=== PATIENT | female | born 1950 | race Caucasian/White ===

== ENCOUNTER 2023-10-24 04:39 | Emergency (ER) | payer MEDICARE, SELFPAY ==
[2023-10-24 04:42] VITALS: BP 182/79; PULSE 65; TEMP 36.8; O2SAT 93; BMI 41.3
--- NOTE | 2023-10-24 05:30 | W.ED.EYEPROB ---
HPI - Eye Problem General: Chief complaint: Eye Problems Stated complaint: left eye pain Time Seen by Provider: 10/24/23 05:04 History of Present Illness: 73-year-old female presents emergency department with complaints that she feels like she is having left eye irritation. She states she had an eyelash that she thought was in her eye approximately 5 days ago she states she has been seen by her primary care provider 2 days ago and was found to have no foreign body in the eye. She states she does have sicca syndrome and states that she feels that the eye is having excessive tearing. She states she does take 3 medications that are eyedrops for her eye. She states she feels like there is irritation to the approximately 9 o'clock position of her left eye. Review of Systems General: Reports: 10 or more systems reviewed and unremarkable except in HPI and below Eyes: Reports: eye discomfort and dry eyes Physical Exam Narrative: EXAM NARRATIVE: Constitutional: the patient appears well nourished and of normal development. Vital signs as documented. No acute distress at present. Alert and oriented-to person, place, time and situation. Head, eyes, ears, nose, mouth, throat: Normocephalic, atraumatic. Pupils-equal, round, reactive to light. Extraocular movements intact. No conjunctival erythema, no scleral icterus. Normal-appearing external ears. Normal appearing nasal turbinates, no drainage. No obvious oral lesions, posterior oropharynx without erythema or exudates. Neck: Supple, trachea is midline, no lymphadenopathy, no jugular venous distension, Lungs: clear to auscultation to all lung santoyo. Symmetrical rise and fall of chest, no obvious signs of increased work of breathing at present. Cardiac: Regular rate and rhythm, positive S1, S2. No murmurs, rubs or gallops that I can appreciate Abdomen: Soft, non-tender to palpation, normal active bowel sounds to all quadrants. No palpable masses, no organomegaly and abdominal bruits. Extremities: 2+ pulses in the upper extremities that are equal bilaterally, 2+ pulses in the lower extremities that are equal bilaterally. Non-edematous. Moves all extremities well, sensation to all extremities are noted. Skin: Warm, dry, intact. Course Vital Signs: Vital signs: Vital Signs Temperature 98.3 F 10/24/23 04:42 Pulse Rate 65 10/24/23 04:42 Blood Pressure 164/72 10/24/23 05:57 Pulse Oximetry 93 10/24/23 04:42 Oxygen Delivery Me thod Room Air 10/24/23 04:42 MDM - Eye Problem Medical Decision Making Physical exam completed and documented, I did have an extensive discussion with the patient regarding the need for follow-up with the eye doctor and did provide her contact information for Dr. Melgoza. No radiology studies performed this visit Discharge Plan Discharge Patient Disposition: Home Clinical Impression: Foreign body sensation, left eye Condition: Stable Discharge Orders: Discharge ED (Routine); Ordered 10/24/23 Ordered By: Jovan Westbrook Referrals: Briana Calzada DO [Primary Care Provider] - Kamaljit Melgoza MD [Physician] - Discharge Diet: Usual diet Discharge Activity: Resume usual activity Patient Instructions: Opioid Safety, Pain Management Activity Restrictions/Additional Instructions: Activity Restrictions/Additional Instructions: Thank you for choosing [facility] for your healthcare needs today. Please realize that you were seen in the Emergency Department and that we are providing you with an emergency medical screening exam and this may not be a complete and all inclusive of all the testing and or medical work-up that you may need to determine your ailment or severity of your illness. It is very important that you follow-up as instructed with your Primary care provider or Specialist for additional evaluation and to discuss your medical treatment plan. You may return to the Emergency Department should you have concerns or if your condition changes or worsens in any way. Coding Level of Care Code ED Health Science Specialist for Rey Caceres
[2023-10-24 05:57] VITALS: BP 164/72
[2023-10-24 06:19] VITALS: BP 164/72; PULSE 65; RESP 16; TEMP 36.8; O2SAT 93
== END 2023-10-24 06:21 | disposition home or self-care (01) ==
PROVIDERS: Emergency Provider Internal Medicine; Family Provider Family Medicine; PCP Family Medicine
DX: H57.12 Ocular pain, left eye (principal)
CPT/HCPCS: 99281